=== PATIENT | female | born 1980 | race Caucasian/White ===

== ENCOUNTER 2017-08-23 14:48 | Observation (INO) | payer OTHER ==
[~2017-08-23] VITALS: Ht 167.6 cm; Wt 116.6 kg
[~2017-08-23 14:48] MED LIST: ADVIL LIQUI-GE200 MG PO; AMOXICILLIN500 MG PO; CATAFLAM50 MG PO; CYCLOBENZAPRINE10 MG PO; DEPLIN7.5 MG PO; FLUTICASONE PRO16 GM NS; HYDROCHLOROTH12.5 M1 PO; HYDROCHLOROTHIA25 MG PO; IBUPROFEN600 MG PO; IMITREX50 MG PO; KETOROLAC TROME10 MG PO; L-METHYLFOLATE15 M1 PO; LAMICTAL25 MG PO; LAMOTRIGINE100 MG PO; LEVOTHYROXINE25 MCG PO; MULTI VITAMIN1 EACH PO; MULTI-DAY PLUS1 EAC1 PO; NORCO 10-325 T1 EACH PO; OMEGA-31000 MG PO; PROZAC20 MG PO; SUMATRIPTAN SU100 MG PO; SYNTHROID175 MCG PO; TYLENOL EXTRA500 MG PO; TYLENOL325 MG PO
--- NOTE | 2017-08-23 18:39 | NUR ---
PT TO FLOOR VIA STRETCHER WITH LEAD SHAREPOINT DEVELOPER. PT A\O. RATES PAIN 7\10. VS STABLE. IVF RUNNING. NPO AT MIDNIGHT.
--- NOTE | 2017-08-23 19:05 | NUR ---
BEDSIDE REPORT RECEIVED FROM OFFGOING NURSE. PT SITTING UP IN BED USING CELL PHONE. DENIES NEEDS AT THIS TIME. CALL LIGHT WITHIN REACH.
--- NOTE | 2017-08-23 21:15 | NUR ---
PT REQUESTING BROTH AND 7 UP, PROVIDED. PT DENIES FURTHER NEEDS. CALL LIGHT WITHIN REACH.
--- NOTE | 2017-08-23 23:14 | NUR ---
PT ASSESSMENT COMPLETE. PT RATES PAIN 6/10, REQUESTS PAIN MEDICATION. PRN DILAUDID ADMINISTERED. PT NAUSEA, STATES THAT NAUSEA ELEVATES WITH PAIN, DENIES NEED FOR NAUSEA MEDICATION. PT AMBULATES TO BATHROOM WITH STANDBY ASSIST, TOLERATES WELL. BT'S ACTIVE. PT REPORTS TENDERNESS TO ABD PALPATION. AFTER DILAUDID ADMINISTRATION PT RATES PAIN 4/10. STATES "SOON IT WILL BE NUMB." PT REPORTS SWELLING TO R HAND. IV SITE PATENT WITH BLOOD RETURN. NO PAIN OR TENDERNESS WITH 10 ML NS FLUSH. ASSISTED PT TO REMOVE HER RINGS INCASE HANDS BECAME MORE SWOLLEN. PT RINGS X 3 AT BEDSIDE NEXT TO HER PURSE. PT REQUESTS ADDITIONAL BEEF BROTH, PROVIDED. PT DENIES OTHER NEEDS AT THIS TIME. CALL LIGHT WITHIN REACH.
--- NOTE | 2017-08-24 01:11 | NUR ---
PT SITTING UP IN BED VISITING WITH INDUSTRIAL BOILERMAKER. PT STATES THAT PAIN IS 4/10, WHICH IS A TOLERABLE LEVEL. NO DRINKS REMAIN AT BEDSIDE. PT UNDERSTANDS NPO STATUS. PT DENIES OTHER NEEDS AT HIS TIME. CALL LIGHT WITHIN REACH.
--- NOTE | 2017-08-24 01:25 | NUR ---
PATIENT CALLED. ASKED TO HAVE THE ROOM MORE COOLER. ROOM TEMP WAS 75 ADJUSTED TO 68 SHE DESIRED.
--- NOTE | 2017-08-24 02:30 | NUR ---
PT ASSESSMENT COMPLETE. PT RATES PAIN 6/10 REQUESTING DILAUDID. PT DESCRIBES PAIN STABBING TO UPPER ABD. BT'S ACTIVE. ABD REMAINS TENDER TO PALPATION. PT DENIES OTHER NEEDS AT THIS TIME. CALL LIGHT WITHIN REACH.
--- NOTE | 2017-08-24 04:15 | NUR ---
pt lying in bed awake. states that pain has started to elevate, rates 05/02. pt requests pain medication. prn dilaudid administered. pt denies further needs. call light within reach.
--- NOTE | 2017-08-24 05:16 | NUR ---
PT LYING IN BED PLAYING ON CELL PHONE. PT REPORTS PAIN DECREASED TO 5/10. DENIES NEEDS AT THIS TIME. CALL LIGHT WITHIN REACH.
--- NOTE | 2017-08-24 05:24 | NUR ---
PT AWAKE MAJORITY OF SHIFT. DILAUDID Q 2 FOR PAIN IN UPPER ABD. BT'S ACTIVE. ABD TENDER TO PALPATION. SBA ASSIST IN ROOM, D5LR @ 125. NPO SINCE MIDNIGHT.
--- NOTE | 2017-08-24 07:40 | NUR ---
patient sitting up in bed sipping on clear liquids. washed hands and face. oral care set up in bathroom. talked about bathing before her surgery today. no other needs fresh ice water given. call button in reach.
--- NOTE | 2017-08-24 09:44 | NUR ---
PATIENT DENIES NAUSEA AT THIS TIME, RATES PAIN 2/10 TO ABDOMEN. PATIENT DENIES NEEDS. FAMILY AT BEDSIDE.
--- NOTE | 2017-08-24 09:47 | NUR ---
PATIENT SLEEPING IN NO DISTRESS.
--- NOTE | 2017-08-24 09:50 | NUR ---
BRUISING NOTED ABOVE IV SITE. PATIENT REPORTS SHE HAD ANOTHER IV ATTEMPT IN THAT SPOT. IV FLUSHES EASILY AND WITHOUT PAIN. UNABLE TO DRAW BLOOD BACK. PATIENT INSTRUCTED TO USE CALL LIGHT IF HAVING ANY PAIN TO IV SITE.
--- NOTE | 2017-08-24 10:46 | NUR ---
PATIENT RESTING IN BED WITH EYES CLOSED. NO NEEDS AT THIS TIME. CALL BUTTON IN REACH.
--- NOTE | 2017-08-24 11:02 | NUR ---
STARTED 2ND IV SITE FIRST SITE HAS SOME BRUISING. PATIENT TOLERATES WELL
--- NOTE | 2017-08-24 11:35 | NUR ---
Patient up to bathroom to void, c/o 06/01 abdominal pain. Medicated patient with 0.5 mh IV dilaudid.
--- NOTE | 2017-08-24 14:03 | NUR ---
Patient up to shower for hibicleanse washdown. Patient tolerates well. Patient back to bed, medicated with 8mg IV Zofran for nausea and 0.5 mg IV dilaudid for pain 7/10 to abdomen. Patient NPO for surgery, lying in bed with scd's on. Call light in reach.
[2017-08-24] MEDS ORDERED: OMEPRAZOLE20 MG PO (14:21)
[2017-08-24] MEDS ORDERED: PROPRANOLOL HCL40 MG PO (14:22)
--- NOTE | 2017-08-24 14:57 | NUR ---
Medications reconciled by pharmacist using pharmacy records and patient interview. Discrepancies were discussed with Dr Moy. Pharmacist will write orders per telephone order per Dr Moy.
--- NOTE | 2017-08-24 16:20 | NUR ---
PATIENT SLEEPING IN NO DISTRESS. CALL LIGHT IN REACH.
--- NOTE | 2017-08-24 16:42 | NUR ---
Patient leaves for OR with crew. Patient in no distress.
--- NOTE | 2017-08-24 18:09 | NUR ---
08/24/17 180 Yadira Sewell 1806 - PT ARRIVED TO PACU. MAINTAINING OWN AIRWAY. DOCKMASTER AT BEDSIDE.
--- NOTE | 2017-08-24 19:00 | NUR ---
REPORT RECEIVED FROM OFFGOING RN. PT IN PACU AT THIS TIME.
--- NOTE | 2017-08-24 20:15 | NUR ---
PT RETURNED TO THE FLOOR VIA STRETCHER, WAS ABLE TO SCOOT HERSELF FROM THE STRETCHER TO THE BED WITH MINIMAL ASSISTANCE. PT RATES PAIN 4/10. DENIES CHEST PAIN AT THIS TIME. LAP SITES X4 COVERED WITH GAUZE AND TAPE. SMALL AMOUNT OF RED SHADOWING PRESENT. BT'S HYPOACTIVE, ABD TENDER TO PALPATION. DR. POSADA IN ROOM TALKING WITH PT.
--- NOTE | 2017-08-24 20:30 | NUR ---
PT REQUESTING ICE CHIPS. EXPLAINED ADVANCE TOLERTED DIET, PT AGREES TO TRY JELLO. ICE, WATER, AND JELLO PROVIDED.
--- NOTE | 2017-08-24 21:35 | NUR ---
PT REPORTING PAIN, 05/02. ALECIA CRACKERS X 2 PROVIDED, PERCOCET X 1 ADMINISTRED.
--- NOTE | 2017-08-24 22:31 | NUR ---
PATIENT CALLED TO USE THE BATHROOM. STANDBY ASSISTED. PATIENT TOLERATED WELL WALKING TO AND BACK TO BED. CALL LIGHT IS WITHIN REACH.
--- NOTE | 2017-08-24 23:07 | NUR ---
PT REPORTS THAT PAIN IS TOLERABLE, REQUESTING BEEF BROTH, PROVIDED. PT SITTING IN BED USING CELL PHONE. CALL LIGHT WITHIN REACH. PT DENIES OTHER NEEDS.
--- NOTE | 2017-08-24 23:24 | NUR ---
PT UTILIZES CALL LIGHT, REPORTS PAIN INCREASING. REQUESTS SECOND PERCOCET TABLET. RATES PAIN 7/10. PT UP TO USE THE BATHROOM WITH 1 PA. DENIES OTHER NEEDS AT THIS TIME. CALL LIGHT WITHIN REACH.
--- NOTE | 2017-08-25 01:46 | NUR ---
PT INFORMS HAND TURNER THAT PAIN IS ELEVATING, RATES 05/02. PRN OXYCODONE ADMINSISTERED. PT DENIES OTHER NEEDS AT THIS TIME. CALL LIGHT WITHIN REACH.
--- NOTE | 2017-08-25 03:16 | NUR ---
STANDBY ASSISTED TO THE BATHROOM AND BACK TO BED. CALL LIGHT IS IN REACH.
--- NOTE | 2017-08-25 05:03 | NUR ---
PT AWAKE MOST OF NIGHT. PAIN BETWEEN 4-7/10. PRN PERCOCET X 2. NAUSEA ACCOMPANIES PAIN AND IS CONTROLLED BY PAIN MEDICATION. ICE TO ABD. BT'S HYPOACTIVE. ABD TENDER. LAP SITES X 4. SM AMT OF SHADOWING. D5LR @ 100. 1 PA. TOLERATING REGULAR DIET WELL.
--- NOTE | 2017-08-25 06:33 | NUR ---
PT RATES PAIN 06/01. REQUESTS PAIN MEDICATION. PRN PERCOCET ADMINISTERED. PT UP TO USE BATHROOM. DENIES OTHER NEEDS AT THIS TIME. CALL LIGHT WITHIN REACH.
--- NOTE | 2017-08-25 07:23 | NUR ---
REPORT RECIEVED FROM SIM BOWMAN. PT AWAKE AND ANXIOUS ABOUT GOING HOME. REASSURED HER THAT WE WOULD SEND HER HOME WITH AN RX FOR PAIN MEDS. TELE #1 HR'S IN 50'S THROUGHOUT NIGHT.
--- NOTE | 2017-08-25 08:00 | NUR ---
PATIENT SITTING UP IN BED EATING BREAKFAST. FRESH ICE WATER GIVEN. ICE IN ICE PACK. CALL BUTTON IN REACH. NO OTHER NEEDS AT THIS TIME.
[2017-08-25] MEDS ORDERED: PERCOCET 5-3251 EACH PO (08:01)
--- NOTE | 2017-08-25 08:18 | EKG ---
[facility] [address] [facility] [place], [place] [address] Signed Normal sinus rhythm Normal ECG No previous ECGs available Confirmed by JOAQUIM POSADA MD ([id number]) on 08/25/2017 8:18:06 AM Electronically Signed By: JOAQUIM POSADA MD 08/25/17 0818 PATIENT NAME: SOPHIA FLANAGAN Electrocardiogram DATE OF : 80 PHYSICIAN: JOAQUIM POSADA MD REPORT #: [id number] REPORT IS CONFIDENTIAL AND NOT TO BE RELEASED WITHOUT AUTHORIZATION
--- NOTE | 2017-08-25 09:40 | NUR ---
PT EDUCATION GIVEN, PT VERBALIZED UNDERSTANDING. ANSWERED QUESTIONS REGARDING FLU VACCINE AND DISCHARGE INSTRUCTIONS. FOLLOW UP APPT CARD GIVEN. WILL GIVE PAIN MEDS PRIOR TO DISCHARGE. REMOVED IVS WNL. PT TOLERATED WELL. PT UP GETTING DRESSED AND CALLING MOTHER TO COME AND GET HER.
--- NOTE | 2017-08-25 10:00 | NUR ---
PATIENT GETTING DRESSED TO GO HOME.
--- NOTE | 2017-08-26 14:14 | CONS ---
[facility] [address] [place], [place] [address] Signed DATE OF CONSULTATION: 08/24/17 REFERRING PHYSICIAN: Dr. Foster Carreon. CHIEF COMPLAINT: Epigastric abdominal pain. HISTORY OF PRESENT ILLNESS Faye is a 37-year-old female, who over the last 6 months has had a lot of trouble with epigastric abdominal pain. It is worse after meals. It often causes nausea and vomiting. She said yesterday she had a terrible painful attack and ended up in the emergency room. Her laboratory work showed a slightly increased AST and ALT. Ultrasound of the gallbladder showed multiple small stones in her common bile duct, slightly dilated at 6.3 mm. The gallbladder wall does not appear thickened. There is no pericholecystic fluid. 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 We already did 3 gallbladder surgeries yesterday and so she was admitted a little after 5 o'clock last night. She has done well overnight. PAST MEDICAL HISTORY Hypertension, hypothyroidism, migraine headaches, obstructive sleep apnea requiring CPAP mask. PAST SURGICAL HISTORY Left knee arthroscopy with Dr. Casillas and a right carpal tunnel release with a neurosurgeon in [place], [place]. SOCIAL HISTORY She does not smoke. She has a drink once in a while. She is and has 3 children. Her [id number] was Merlyn Gray at [phone]. Her primary care provider is Dr. Marcial Mcghee. She prefers the [facility] pharmacy. 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 FAMILY HISTORY: Mom and dad are healthy. REVIEW OF SYSTEMS Faye had 10 systems reviewed. Nothing new to add. ALLERGIES Hydrocodone, Naproxen and Azithromycin. She said Percocet is fine. MEDICATIONS Ketorolac, Prozac, Levothyroxine, Vitamin, Tylenol, [place] 3, Imitrex and Hydrochlorothiazide. PHYSICAL EXAMINATION Electronically Signed By: RYLAN TSAI MD 08/26/17 1414 PATIENT NAME: FAYE FLANAGAN CONSULTATION DATE OF : 80 PHYSICIAN: RYLAN TSAI MD REPORT #: [id number] REPORT IS CONFIDENTIAL AND NOT TO BE RELEASED WITHOUT AUTHORIZATION [facility] [address] [place], [place] [address] Signed VITAL SIGNS: Blood pressure is 126/80, heart rate 65, respiratory rate 16, temperature is 98.5, she is 95% on room air. She is 5 feet 6 inches, 116 kg. GENERAL: Faye is a 37-year-old female, appears healthy and her stated age. She is not ill or toxic. She is not jaundiced. LUNGS: Clear to auscultation bilaterally. HEART: Regular rate and rhythm. ABDOMEN: Obese, but soft with tenderness in the epigastric region. LABORATORY DATA Her white blood cell count 9.4, hemoglobin 14, neutrophils 969. BUN 11, creatinine 0.7. Urinalysis negative. Beta HCG negative. Total bilirubin 0.4, AST is 124, ALT 70, alkaline phosphatase 80, albumin 3.9, lipase 34. RADIOGRAPHIC STUDIES Ultrasound is reviewed. She does have cholelithiasis with a slightly dilated common bile duct of 6.3 mm but an unremarkable gallbladder wall. ASSESSMENT AND PLAN Faye is a 37-year-old female with cholelithiasis and cholecystitis. She has been admitted overnight and given IV fluids, antibiotics, and pain control. This morning, she is doing better, although naphthalene still operator in the epigastric region. I reviewed with her the location and function of the gallbladder. We discussed laparoscopic versus open cholecystectomy. She understands expected intraop and postop course. There is risk of surgery including, but not limited to bleeding, infection, scarring, change in contour of the skin, damage to bowel, damage to main bile duct, incisional hernias and other unforeseen comorbidities. She has expressed understanding and wishes to proceed. We will check our OR scheduling in later today. MD ZIA Rey/Lil /[id number] cc: Marcial Mcghee MD Electronically Signed By: RYLAN TSAI MD 08/26/17 1414 PATIENT NAME: FAYE FLANAGAN CONSULTATION DATE OF : 80 PHYSICIAN: RYLAN TSAI MD REPORT #: [id number] REPORT IS CONFIDENTIAL AND NOT TO BE RELEASED WITHOUT AUTHORIZATION
--- NOTE | 2017-08-26 14:14 | DS ---
[facility] [address] [place], [place] [address] Signed DATE OF DISCHARGE: 08/25/17 FINAL DIAGNOSES Cholecystitis with cholelithiasis. Postoperative chest pain. PROCEDURES Laparoscopic cholecystectomy with intraoperative cholangiogram. Chest x-ray. EKG. HISTORY OF PRESENT ILLNESS Faye is a 37-year-old, obese female, who came with epigastric pain, worse after meals, for the last 6 months. She had a terrible attack with pain with nausea and vomiting, came to the ER. Liver function tests were slightly elevated and the ultrasound showed gallstones and a slightly prominent common bile duct. She had been admitted, hydrated, and then taken to the operating room for her uncomplicated laparoscopic cholecystectomy with intraoperative cholangiogram. Intraoperative cholangiogram was unremarkable. However, in the recovery room, she woke up with some heavy chest pressure, so we checked a chest x-ray and it was fine, EKG was fine and her laboratory work was fine and just to be thorough, we did have our hospitalist come and see her as well. He felt everything was fine as well. We kept her overnight on telemetry. We repeated the Troponin levels and they have all been fine. At this point, she is feeling much better. She is eating and ambulating and we are going to be discharging her to home. DISCHARGE PLANS AND MEDICATIONS Faye will go home with Percocet 5/325, one to two tablets p.o. q.4-6 hours p.r.n. pain, we will dispense 50 tablets with no refills. She can resume any chronic medications. She can perform her activities of daily living including walking up and down stairs and showering and bathing as usual. She should not do any heavy pushing, pulling, or lifting over 25 pounds. She can return to work in about a week when she is feeling better. We will have her follow up in the office in about a week or so. She has expressed understanding and agrees with the above plan. MD ZIA Rey/Abhishek Electronically Signed By: RYLAN TSAI MD 08/26/17 1414 PATIENT NAME: FAYE FLANAGAN DISCHARGE SUMMARY DATE OF : 80 PHYSICIAN: RYLNA TSAI MD REPORT #: [id number] REPORT IS CONFIDENTIAL AND NOT TO BE RELEASED WITHOUT AUTHORIZATION [facility] [address] [place], [place] [address] Signed /[id number] cc: Dr. Marcial Mcghee Electronically Signed By: RYLAN TSAI MD 08/26/17 1414 PATIENT NAME: FAYE FLANAGAN NATALI DISCHARGE SUMMARY DATE OF : 80 PHYSICIAN: RYLAN TSAI MD REPORT #: [id number] REPORT IS CONFIDENTIAL AND NOT TO BE RELEASED WITHOUT AUTHORIZATION
--- NOTE | 2017-08-26 14:14 | OR ---
[facility] [address] [place], [place] [address] Signed DATE OF PROCEDURE: 08/24/17 PREOPERATIVE DIAGNOSIS: Cholecystitis with cholelithiasis. POSTOPERATIVE DIAGNOSIS: Cholecystitis with cholelithiasis. PROCEDURE Laparoscopic cholecystectomy with intraoperative cholangiogram. ESTIMATED BLOOD LOSS: None. FINDINGS Faye had mild thickening and edema to the gallbladder wall. She had multiple yellow stones in the gallbladder, probably 5, 6 mm in diameter. Initially we thought we saw filling defect in the distal common bile duct. We used magnification and we looked again with some additional contrast and I think it is just a kink as the common bile duct comes through the wall of the duodenum. The rest of the common bile duct seemed unremarkable. INDICATIONS Faye is a 37-year-old obese female, who presented with epigastric abdominal pain, made worse after meals for the last 6 months. She had a tremendous attack on the day of admission with nausea and vomiting and pain, and came to emergency room for evaluation. Her laboratory work was unremarkable except the AST and ALT were slightly elevated. Lipase was normal. Ultrasound showed the gallstones and her common bile duct was just ever so slightly dilated at 6.3 mm for her age. I was asked to admit her as a general surgeon on-call. Overnight, she was hydrated and given antibiotics and pain control. I met with Faye in the hospital and I explained to her the location and function of the gallbladder. We discussed laparoscopic versus open cholecystectomy. She understands expected intraop and postop course. We did review the risks including, but not limited to bleeding, infection, scarring, change in contour of the skin, damage to bowel, damage to main bile duct, incisional hernias and other unforeseen comorbidities. She had expressed understanding and wished to proceed. PROCEDURE NOTE Faye was taken into our operating room and placed in the supine position under general endotracheal tube anesthesia. She was already on preoperative antibiotics along with subcutaneous heparin. SCDs were utilized. She was then prepped and draped in the usual sterile fashion. All trocars were placed in usual positions under direct visualization of the camera without difficulty. The gallbladder was grasped and elevated in the right upper quadrant. It was quite distended and tense. The triangle of [place]ot was dissected free and the intraoperative cholangiocatheter was then inserted into the cystic duct. Electronically Signed By: RYLAN TSAI MD 08/26/17 1414 PATIENT NAME: FAYE FLANAGAN OPERATIVE REPORT DATE OF : 80 PHYSICIAN: RYLAN TSAI MD REPORT #: [id number] REPORT IS CONFIDENTIAL AND NOT TO BE RELEASED WITHOUT AUTHORIZATION [facility] [address] [place], [place] [address] Signed The intraoperative cholangiogram was then performed. The cystic duct stump was secured with a PDS Endoloop. Two clips were placed across the cystic duct stump to reshma its location. The gallbladder was then removed from the gallbladder fossa with the help of the cautery and placed into an EndoCatch bag. The right upper quadrant was irrigated and suctioned out until clear. The laparoscopic suturing device was used to pass 0 Vicryl suture on either side of the fascia of the subxiphoid trocar site. This was tied down to close this fascia primarily. After this, the gas was allowed to escape and all the trocars were removed along with the gallbladder. The gallbladder was opened on the back table by our circulating nurse. Pictures were taken throughout for photodocumentation. We closed the fascia of the supraumbilical trocar site with interrupted 0 Vicryl sutures. Local anesthetic was copiously injected into all trocar sites. Each trocar site was irrigated and suctioned out until clear. The skin and dermis of each trocar site were closed with interrupted 3-0 subcuticular Monocryl sutures. Dry gauze and tape were applied to all incisions. Faye was awakened from her anesthesia, extubated in the OR, and taken to recovery room in stable condition. MD ZIA Rey/Lil /[id number] cc: Marcial Mcghee MD Electronically Signed By: RYLAN TSAI MD 08/26/17 1414 PATIENT NAME: FAYE FLANAGAN OPERATIVE REPORT DATE OF : 80 PHYSICIAN: RYLAN TSAI MD REPORT #: [id number] REPORT IS CONFIDENTIAL AND NOT TO BE RELEASED WITHOUT AUTHORIZATION
== END 2017-08-25 10:30 | disposition home or self-care (01) ==
LOC: ED 14:48 → MS 14:50
PROVIDERS: ADMIT Colon & Rectal Surgery
PROC: BF101ZZ Fluoroscopy of Bile Ducts using Low Osmolar Contrast (ICD-10-PCS; 2017-08-24)
PROC: 0FT44ZZ Resection of Gallbladder, Percutaneous Endoscopic Approach (ICD-10-PCS; principal; 2017-08-24 17:00)
PROC: 3E0234Z Introduction of Serum, Toxoid and Vaccine into Muscle, Percutaneous Approach (ICD-10-PCS; 2017-08-25)
DX: K80.10 Calculus of gallbladder with chronic cholecystitis without obstruction (principal); I10 Essential (primary) hypertension; E03.9 Hypothyroidism, unspecified; G43.909 Migraine, unspecified, not intractable, without status migrainosus; G47.33 Obstructive sleep apnea (adult) (pediatric); K21.9 Gastro-esophageal reflux disease without esophagitis; E66.01 Morbid (severe) obesity due to excess calories; G89.29 Other chronic pain; R07.89 Other chest pain; Z68.41 Body mass index [BMI] 40.0-44.9, adult; Z23 Encounter for immunization; Z88.6 Allergy status to analgesic agent; Z88.5 Allergy status to narcotic agent; Z88.1 Allergy status to other antibiotic agents; Z79.899 Other long term (current) drug therapy; Z79.1 Long term (current) use of non-steroidal anti-inflammatories (NSAID)
CPT/HCPCS: 00790; 36415; 71010; 74300; 76705; 80053; 81001; 83690; 83735; 84484; 84703; 85025; 90674; 93005; 93010; 96361; 96365; 96372; 96375; 96376; 99285; G0008; G0378; J0330; J0696; J1100; J1170; J1644; J1885; J2250; J2270; J2405; J2704; J2710; J2765; J3010; J7040; J7120; Q9967

== ENCOUNTER 2019-12-15 16:19 | Emergency (ER) | payer OTHER ==
[~2019-12-15] VITALS: Ht 167.6 cm; Wt 116.6 kg
[~2019-12-15 16:19] MED LIST changes: +OMEPRAZOLE20 MG PO; +PERCOCET 5-3251 EACH PO; +PROPRANOLOL HCL40 MG PO
[2019-12-15] MEDS ORDERED: VERAPAMIL ER120 M1 PO (16:31)
[2019-12-15] MEDS ORDERED: ZANAFLEX4 MG PO (16:31)
[2019-12-15] MEDS ORDERED: DICLOFENAC SODI50 MG PO (16:32)
--- NOTE | 2019-12-16 08:00 | EKG ---
[facility] [address] [facility] [place], [place] [address] Signed Normal sinus rhythm Normal ECG When compared with ECG of 24-AUG-2017 18:56, No significant change was found Confirmed by SASCHA ORELLANA MD ([id number]) on 12/16/2019 8:00:38 AM Electronically Signed By: SASCHA ORELLANA MD 12/16/19 0800 PATIENT NAME: SOPHIA FLANAGAN Electrocardiogram DATE OF : 80 PHYSICIAN: SASCHA ORELLANA MD REPORT #: [id number] REPORT IS CONFIDENTIAL AND NOT TO BE RELEASED WITHOUT AUTHORIZATION
== END 2019-12-15 18:03 | disposition home or self-care (01) ==
LOC: ED 16:19
DX: R07.89 Other chest pain (principal); I10 Essential (primary) hypertension; E03.9 Hypothyroidism, unspecified; G43.909 Migraine, unspecified, not intractable, without status migrainosus; Z88.1 Allergy status to other antibiotic agents; Z88.5 Allergy status to narcotic agent; Z88.8 Allergy status to other drugs, medicaments and biological substances; Z79.899 Other long term (current) drug therapy
CPT/HCPCS: 71045; 80053; 83690; 83735; 84484; 85025; 93005; 93010; 99285-25

== ENCOUNTER 2020-04-28 11:47 | Emergency (ER) | payer OTHER ==
[~2020-04-28] VITALS: Ht 167.6 cm; Wt 117.9 kg
--- OUTSIDE RECORDS SUMMARY | ~2020-04-28 | XMS | Encounter Summary ---
Demographics + + + | Address | [address] | | | [place] [address] | + + + | Home Phone | | + + + | Preferred Language | Unknown | + + + | Marital Status | | + + + | Holiness Affiliation | 1025 | + + + | Race | Unknown | + + + | Ethnic Group | Unknown | + + + Author + + + | Author | [facility] [address] | | | and [place] | + + + | Organization | [facility] [address] | | | and [place] | + + + | Address | Unknown | + + + | Phone | Unavailable | + + + Support + + +---------+ + | Name | Relationship | Address | Phone | + + +---------+ + | Homer Dalal | ECON | Unknown | | + + +---------+ + Care Team Providers + +------+ + | Care Educational Aide Name | Role | Phone | + +------+ + PCP | Unavailable | + +------+ + Encounter Details +--------+ + + + + | Date | Type | Department | Care Team | Description | +--------+ + + + + | 09/24/ | Hospital | [facility] | Donnie Amaral MD | | | 2009 | Encounter | [facility] | [address] | | | | | [address] | [place] [address] | | | | | [place] | [phone] | | | | | [address] | | | | | | [phone] | | | +--------+ + + + + Social History + +-------+ +--------+------+ | Tobacco Use | Types | Packs/Day | Years | Date | | | | | Used | | + +-------+ +--------+------+ | Never Assessed | | | | | + +-------+ +--------+------+ + + + | Sex Assigned at | Date Recorded | | | | + + + | Not on file | | + + + + + + + | Job Start Date | Occupation | Industry | + + + + | Not on file | Not on file | Not on file | + + + + + + + + | Travel History | Travel Start | Travel End | + + + + + + | No recent travel history available. | + + documented as of this encounter Plan of Treatment Not on filedocumented as of this encounter Visit Diagnoses Not on filedocumented in this encounter"
--- OUTSIDE RECORDS SUMMARY | ~2020-04-28 | XMS | Encounter Summary ---
Demographics + + + | Address | [address] | | | [place] [address] | + + + | Home Phone | | + + + | Preferred Language | Unknown | + + + | Marital Status | | + + + | Pentecostalism Affiliation | 1025 | + + + | Race | Unknown | + + + | Ethnic Group | Unknown | + + + Author + + + | Author | [facility] [address] | | | and [place] | + + + | Organization | [facility] and [facility] [address] | | | and [place] [...] Team Providers + +------+ + | Care Telemarketing Sales Representative Name | Role | Phone | + +------+ + PCP | Unavailable | + +------+ + Encounter Details +--------+ + + + + | Date | Type | Department | Care Team | Description | +--------+ + + + + | 09/24/ | Hospital | [facility] | Donnie Amaral MD | | | 2009 | Encounter | [facility] | [address] | | | | | [address] | [place] [address] | | | | | [place] | [phone] | | | | | [address] | | | | | | [phone] | | | +--------+ + + + [...]
--- OUTSIDE RECORDS SUMMARY | ~2020-04-28 | XMS | Clinical Summary ---
Demographics + + + | Address | [address] | | | [place] [address] | + + + | Home Phone | | + + + | Preferred Language | Unknown | + + + | Marital Status | | + + + | Confucianist Affiliation | 1025 | + + + | Race | Unknown | + + + | Ethnic Group | Unknown | + + + Author + + + | Author | [facility] [address] | | | and [place] | + + + | Organization | [facility] and [facility] [address] | | | and [...] Team Providers + +------+ + | Care Scheduling Agent Name | Role | Phone | + +------+ + PCP | Unavailable | + +------+ + Allergies Not on File Medications Not on file Active Problems Not on file Social History + +-------+ +--------+------+ | Tobacco [...] recent travel history available. | + + Last Filed Vital Signs Not on file Plan of Treatment + + + + + | Health Maintenance | Due Date | Last Done | Comments | + + + + + | Vaccine: | | | | | Dtap/Tdap/Td (1 - | 1 | | | | Tdap) | | | | + + + + + | Cervical Cancer | | | | | Screening (Pap) | 0 | | | + + + + + | Vaccine: Influenza | | | | | (Season Ended) | 0 | | | + + + + + Results Not on filefrom Last 3 Months"
--- OUTSIDE RECORDS SUMMARY | ~2020-04-28 | XMS | Clinical Summary ---
Demographics + + + | Address | [address] | | | [place] [address] | + + + | Home Phone | | + + + | Preferred Language | Unknown | + + + | Marital Status | | + + + | Tenriism Affiliation | 1025 | + + + | Race | Unknown | + + + | Ethnic Group | Unknown | + + + Author + + + | Author | [facility] | | | and [place] | + + + | Organization | [facility] | | | and [place] | [...] Team Providers + +------+ + | Care Botany Laboratory Assistant Name | Role | Phone | + [...]
[~2020-04-28 11:47] MED LIST changes: +DICLOFENAC SODI50 MG PO; +VERAPAMIL ER120 M1 PO; +ZANAFLEX4 MG PO
[2020-04-28] MEDS ORDERED: PERCOCET 5-3251 EACH PO (15:17)
[2020-04-28] MEDS ORDERED: PREDNISONE20 MG PO (15:17)
== END 2020-04-28 15:44 | disposition home or self-care (01) ==
LOC: ED 11:47
DX: S39.011A Strain of muscle, fascia and tendon of abdomen, initial encounter (principal); S29.012A Strain of muscle and tendon of back wall of thorax, initial encounter; I10 Essential (primary) hypertension; E03.9 Hypothyroidism, unspecified; G43.909 Migraine, unspecified, not intractable, without status migrainosus; Z88.1 Allergy status to other antibiotic agents; Z88.6 Allergy status to analgesic agent; Z79.899 Other long term (current) drug therapy; X58.XXXA Exposure to other specified factors, initial encounter
CPT/HCPCS: 72080; 96372; 99283-25; J1100; J1885

== ENCOUNTER 2020-11-23 11:04 | Emergency (ER) | payer OTHER ==
[~2020-11-23] VITALS: Ht 167.6 cm; Wt 122.5 kg
[~2020-11-23 11:04] MED LIST changes: +PREDNISONE20 MG PO; +PRENATAL MULTI1 EAC3 PO; +PROBIOTIC1 EAC1 PO; +ZOFRAN4 MG PO
--- OUTSIDE RECORDS SUMMARY | 2020-11-23 11:06 | XMS ---
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 Care History Medical/Surgical 10/05/2020 [facility] - Patient is currently established with [facility]. If patient is seen in the ED during business hours. Please contact CHWs at [facility]. Care Recommendation: If this patient has had 5 or more Emergency Department visits in the last 12 months.\T\nbsp; Patient will require education on the scope and purpose of the ED as an acute care provider not a Primary Care Provider and should not be utilized for chronic conditions.\T\nbsp; These are guidelines and the provider should exercise clinical judgment when providing care. E.D. VISIT COUNT (12 MO.) 4 [facility] TOTAL 4 NOTE: Visits indicate total known visits. ED/UCC VISIT TRACKING (12 MO.) 11/23/2020 11:05 [facility] TYPE: Emergency COMPLAINT: - FLU SYMPTOMS 10/04/2020 06:31 [facility] [place] TYPE: Emergency COMPLAINT: - HEADACHE, CHEST PAIN, ARM NUMBNESS/TINGLING DIAGNOSES: - Allergy status to other antibiotic agents - Migraine, unspecified, not intractable, without status migrainosus - Allergy status to other drugs, medicaments and biological substances - Other chest pain - Essential (primary) hypertension - Other correction (current) drug therapy - Allergy status to narcotic agent - retirement (current) use of systemic steroids - Chest pain, unspecified - Hypothyroidism, unspecified 04/28/2020 11:49 [facility] [place] TYPE: Emergency COMPLAINT: - BACK PAIN, INJ DIAGNOSES: - Essential (primary) hypertension - Strain of muscle and tendon of back wall of thorax, initial encounter - Unspecified abdominal pain - Allergy status to other antibiotic agents - Migraine, unspecified, not intractable, without status migrainosus - Exposure to other specified factors, initial encounter - Hypothyroidism, unspecified - Strain of muscle, fascia and tendon of abdomen, initial encounter - Other ceo (current) drug therapy - Allergy status to analgesic agent 12/15/2019 16:20 [facility] [place] TYPE: Emergency COMPLAINT: - CHEST PAIN DIAGNOSES: - Allergy status to other antibiotic agents - Chest pain, unspecified - Other chest pain - Hypothyroidism, unspecified - Migraine, unspecified, not intractable, without status migrainosus - Other ceo (current) drug therapy - Allergy status to narcotic agent - Allergy status to other drugs, medicaments and biological substances - Essential (primary) hypertension INPATIENT VISIT TRACKING (12 MO.) No inpatient visits to display in this time frame [email or web address]
[2020-11-23] MEDS ORDERED: DICYCLOMINE HCL10 MG PO (16:55)
== END 2020-11-23 17:22 | disposition home or self-care (01) ==
LOC: ED 11:04
DX: K52.9 Noninfective gastroenteritis and colitis, unspecified (principal); I10 Essential (primary) hypertension; E03.9 Hypothyroidism, unspecified; G43.909 Migraine, unspecified, not intractable, without status migrainosus; Z88.1 Allergy status to other antibiotic agents; Z88.5 Allergy status to narcotic agent; Z88.8 Allergy status to other drugs, medicaments and biological substances; Z79.899 Other long term (current) drug therapy
CPT/HCPCS: 80053; 81001; 83690; 83735; 85025; 96374; 96375; 99284-25; J1885; J2405; J7030

== ENCOUNTER 2025-02-27 07:30 | Day surgery (SDC) | payer OTHER ==
--- NOTE | 2025-02-21 16:44 | NUR ---
PHONE CALL TO PT AT THIS TIME WENT TO [facility] AND LEFT MESSAGE. CALLED [phone]
--- NOTE | 2025-02-22 07:50 | NUR ---
PHONE CALL TO PT AT THIS TIME, LEFT MESSAGE.
[~2025-02-27] VITALS: Ht 167.6 cm; Wt 109.1 kg
[~2025-02-27 07:30] MED LIST changes: +CEFAZOLIN SODIUM 2 GM/20 ML SYR IV SCH; +DICYCLOMINE HCL10 MG PO; +IBLOOD GLUCOSE TEST STRIP 1 EA TEST VI PRN; +LACTATED RINGER'S 1,000 ML IV SCH; +LIDOCAINE HCL 1% 5 ML SDV INJ ONE; +TRANEXAMIC ACID IN NACL,ISO-OS 1,000 MG/100 ML PIGGYBACK IV SCH
[2025-02-27 07:50] VITALS: BP 135/93
[2025-02-27] MEDS ORDERED: IBUPROFEN PM S1 EACH PO (07:53)
[2025-02-27] MEDS ORDERED: VITAMIN D250 MC1 PO (07:53)
[2025-02-27] MEDS ORDERED: PROBIOTIC1 EAC8 PO (07:54)
[2025-02-27] MEDS ORDERED: FISH OIL + D31 EACH PO (07:54)
[2025-02-27] MEDS ORDERED: Ropivacaine HCl 0.5% 30 ML VIAL ONE (08:05)
[2025-02-27] MEDS ORDERED: fentaNYL citrate 100 MCG/2 ML VIAL ONE (08:05)
[2025-02-27] MEDS ORDERED: LIDOCAINE HCL 2% 5 ML SDV ONE (08:05)
[2025-02-27] MEDS ORDERED: propofoL 200 MG/20 ML VIAL ONE (08:05)
[2025-02-27] MEDS ORDERED: MIDAZOLAM HCL 2 MG/2 ML VIAL ONE (08:05)
[2025-02-27] MEDS ORDERED: DEXAMETHASONE SOD PHOS 4 MG/ML VIAL ONE (08:05)
[2025-02-27] MEDS ORDERED: KETOROLAC TROMETHAMINE 15 MG/ML VIAL IV PRN (08:30)
[2025-02-27] MEDS ORDERED: OXYCODONE HCL 5 MG TAB PO PRN (08:30)
[2025-02-27] MEDS ORDERED: ondansetron HCL 4 MG/2 ML VIAL ONE (09:32)
[2025-02-27] MEDS ORDERED: droPERidol 5 MG/2 ML VIAL IV PRN ×2 (09:45→12:00)
[2025-02-27] MEDS ORDERED: PROCHLORPERAZINE EDISYLATE 10 MG/2 ML VIAL IV PRN (09:45)
[2025-02-27] MEDS ORDERED: NALOXONE HCL 0.4 MG SYR IV PRN (09:45)
[2025-02-27] MEDS ORDERED: fentaNYL citrate 50 MCG/ML SDV IV PRN (09:45)
[2025-02-27] MEDS ORDERED: ondansetron HCL 4 MG/2 ML VIAL IV PRN (09:45)
[2025-02-27] MEDS ORDERED: HYDROmorphone HCL 1 MG/ML SYR IV PRN (09:45)
[2025-02-27] MEDS ORDERED: IBLOOD GLUCOSE TEST STRIP 1 EA TEST VI PRN (09:45)
[2025-02-27] MEDS ORDERED: OXYCODONE HCL5 MG PO (10:10)
[2025-02-27] MEDS ORDERED: CELECOXIB200 MG PO (10:10)
--- NOTE | 2025-02-27 10:53 | NUR ---
02/27/25 1053 Debby Lebron 1018-PT ARRIVES TO PACU VIA STRETCHER, PT ALERT BUT DROWSY, FALLS BACK TO SLEEP EASILY. VSS ON 8L VIA MASK. 1025-PT TITRATED TO RA, VS REMAIN STABLE. 1035-PT SITTING UP IN BED TALKING TO THIS RN, DENIES PAIN OR NAUSEA. VSS ON RA.
[2025-02-27 11:09] VITALS: BP 156/96
--- NOTE | 2025-02-27 11:17 | NUR ---
1105- PT RETURNS FROM PACU. BEDSIDE REPORT RECIEVED. PT REPORTS A COMFORTABLE AMOUNT OF PAIN. STRONG PULSE IN HER RIGHT UPPER EXTREMETY. PT REPORTS A SMALL AMOUNT OF NAUSEA BUT RECIEVED NAUSEA MEDICATION IN PACU AND REPORTS THAT IT IS GETTING BETTER. PT GIVEN WATER AND JELLO PER REQUEST. BED IN THE LOWEST POSITION, LOCKED AND CALL LIGHT IN REACH. DISCHARGE CRITERIA DISCUSSED AND PT IS UNDERSTANDING.
[2025-02-27 12:08] VITALS: BP 139/88
--- NOTE | 2025-02-27 12:12 | NUR ---
1150- PT REPORTS SOME NAUSEA. RN CALLED [facility] AND RECIEVED ORDER OVER THE PHONE. 1205- VITAL SIGNS OBTAINED. PT REQUESTS NEEDING TO USE THE RESTROOM. PT UP WITH A STEADY AND EVEN GAIT. PT IS ABLE TO RETURN TO ROOM INDEPENDENTLY WITH NO ISSUES. CRYOCUFF PUT IN PLACE. BED IN LOWEST POSITION AND LOCKED. CALL LIGHT IN REACH. PT REPORTS SOME PAIN THAT IS TOLERABLE AND SOME NAUSEA.
--- NOTE | 2025-02-27 12:32 | NUR ---
1228- NAUSEA MEDICATION GIVEN, SEE EMAR. PT REPORTS THE NAUSEA IS WORSE THAN THE PAIN.
[2025-02-27 13:03] VITALS: BP 122/79
--- NOTE | 2025-02-27 13:06 | NUR ---
1305- VITAL SIGNS OBTAINED. PT REPORTS 5/10 PAIN BUT NO NAUSEA. SURGICAL SITE ASSESSED. IV FLUSHED. CYRO CUFF IN PLACE, STRETCHER IS LOCKED IN THE LOWEST POSITION AND CALL LIGHT IN REACH. PT HAS FRIEND AT BEDSIDE AND TALKING WITH FAMILY ON THE PHONE. NO QUESTIONS OR CONCERNS.
--- NOTE | 2025-02-27 13:49 | NUR ---
1325- DISCHARGE INFORMATION GONE OVER AND EDUCATION PROVIDED. ALL QUESTIONS AND CONCERNS ANSWERED. PT HAS MET ALL DISCHARGE CRITERIA. 1340- PT GOT DRESSED WITH HELP OF FRIEND. PT HAS ALL BELONGINGS. IV REMOVED. NO QUESTIONS OR CONCERNS. PT DC FROM DAY SURGERY VIA WHEELCHAIR. PT REPORTS NO NAUSEA AND MILD PAIN. PT IS ABLE TO GET INTO FRIENDS CAR WITH NO ISSUES.
[2025-02-27] MEDS ORDERED: SEVOFLURANE 250 ML BTL INH ONE (16:21)
[2025-02-27] MEDS ORDERED: CELECOXIB 200 MG CAP PO SCH (17:00)
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
== END 2025-02-27 13:40 | disposition home or self-care (01) ==
LOC: DS 07:30
PROVIDERS: ATTEND Specialist
PROC: 0LM14ZZ Reattachment of Right Shoulder Tendon, Percutaneous Endoscopic Approach (ICD-10-PCS; principal; 2025-02-27 09:05)
DX: M75.121 Complete rotator cuff tear or rupture of right shoulder, not specified as traumatic (principal); K21.9 Gastro-esophageal reflux disease without esophagitis; Z79.899 Other long term (current) drug therapy; Z88.5 Allergy status to narcotic agent; Z88.8 Allergy status to other drugs, medicaments and biological substances; Z90.49 Acquired absence of other specified parts of digestive tract
CPT/HCPCS: 01630; 64415; 84703; C1713; J0690; J1100; J1790; J1885; J2003; J2250; J2405; J2704; J2795; J3010; J7121

== ENCOUNTER 2025-11-13 08:36 | Emergency (ER) | payer OTHER ==
[~2025-11-13] VITALS: Ht 167.6 cm; Wt 116.9 kg
[~2025-11-13 08:36] MED LIST changes: -CEFAZOLIN SODIUM 2 GM/20 ML SYR IV SCH; +CELECOXIB200 MG PO; +FISH OIL + D31 EACH PO; -IBLOOD GLUCOSE TEST STRIP 1 EA TEST VI PRN; +IBUPROFEN PM S1 EACH PO; -LACTATED RINGER'S 1,000 ML IV SCH; -LIDOCAINE HCL 1% 5 ML SDV INJ ONE; +OXYCODONE HCL5 MG PO; +PROBIOTIC1 EAC8 PO; -TRANEXAMIC ACID IN NACL,ISO-OS 1,000 MG/100 ML PIGGYBACK IV SCH; +VITAMIN D250 MC1 PO
[2025-11-13] MEDS ORDERED: LEVOTHYROXINE200 MCG PO (08:47)
[2025-11-13] MEDS ORDERED: ACETAMINOPHEN 500 MG TAB PO ONE (10:30)
[2025-11-13] MEDS ORDERED: IBUPROFEN 600 MG TAB PO ONE (10:30)
[2025-11-13] MEDS ORDERED: PREDNISONE20 MG PO (10:44)
[2025-11-13] MEDS ORDERED: CYCLOBENZAPRINE10 MG PO (10:44)
[2025-11-13 11:01] VITALS: BP 156/109
[2025-11-23] MEDS ORDERED: CYCLOBENZAPRINE10 MG PO (05:01)
== END 2025-11-13 11:02 | disposition home or self-care (01) ==
LOC: ED 08:36
DX: M54.50 Low back pain, unspecified (principal); I10 Essential (primary) hypertension; Z88.8 Allergy status to other drugs, medicaments and biological substances; Z91.0110 Allergy to milk products, unspecified; Z79.2 Long term (current) use of antibiotics; Z88.5 Allergy status to narcotic agent; Z59.89 Other problems related to housing and economic circumstances
CPT/HCPCS: 72100; 73502; 99283; A9270